=== PATIENT | female | born 1945 ===

== ENCOUNTER 2019-08-23 11:34 | Observation (INO) ==
[2019-08-23] MEDS ORDERED: Naloxone 0.4 MG/ML INJ IVP PRN (14:06)
[2019-08-23] MEDS ORDERED: Dextrose Gel 15 GM/37.5 ML TUBE PO PRN ×2 (14:51)
[2019-08-23] MEDS ORDERED: *HR* Dextrose 50 % in Water (Syg) 50 ML SYRINGE IVP PRN (14:51)
[2019-08-23] MEDS ORDERED: D5% in Water 1,000 ML IVC PRN (14:51)
[2019-08-23] MEDS ORDERED: Aspirin 81 MG TAB.CHEW PO SCH (15:00)
[2019-08-23] MEDS ORDERED: Acetaminophen 325 MG TABLET PO PRN (15:12)
[2019-08-23] MEDS ORDERED: Colchicine 0.6 MG TABLET PO PRN (15:12)
[2019-08-23] MEDS: Insulin LISPRO 300 UNITS/3 ML VIAL SQ SCH ×3 (16:46→21:59)
[2019-08-23] MEDS: *HR* Heparin 5,000 UNIT/ML VIAL SQ SCH (16:54)
[2019-08-23] MEDS: hydrALAZINE 25 MG TABLET PO SCH ×2 (16:55)
[2019-08-23] MEDS: cefTRIAXone 1,000 MG in Water for inj. (sterile) 10 ML IVP SCH (16:55)
[2019-08-23] MEDS: Ranolazine 500 MG TAB.ER.12H PO SCH (21:54)
[2019-08-23] MEDS: Mirtazapine 15 MG TABLET PO SCH (21:54)
[2019-08-23] MEDS: Metoprolol 100 MG TABLET PO SCH (21:54)
[2019-08-24] MEDS: hydrALAZINE 25 MG TABLET PO SCH ×4 (01:00→23:14)
[2019-08-24] MEDS: *HR* Heparin 5,000 UNIT/ML VIAL SQ SCH ×2 (06:27→17:24)
[2019-08-24] MEDS: Insulin LISPRO 300 UNITS/3 ML VIAL SQ SCH ×4 (08:41→20:30)
[2019-08-24] MEDS: Fenofibrate 54 MG TABLET PO SCH (09:06)
[2019-08-24] MEDS: Folic Acid 1 MG TABLET PO SCH (09:06)
[2019-08-24] MEDS: Metoprolol 100 MG TABLET PO SCH ×2 (09:07→20:04)
[2019-08-24] MEDS: allopurinoL 100 MG TABLET PO SCH (09:07)
[2019-08-24] MEDS: Ranolazine 500 MG TAB.ER.12H PO SCH ×2 (09:07→20:04)
[2019-08-24] MEDS: cefTRIAXone 1,000 MG in Water for inj. (sterile) 10 ML IVP SCH (09:07)
[2019-08-24] MEDS: Cyanocobalamin (B-12) 1,000 MCG TABLET PO SCH (09:07)
[2019-08-24] MEDS: Mirtazapine 15 MG TABLET PO SCH (20:04)
[2019-08-25 05:13] LABS: Basophils % 0.9 %; Eosinophils # 0.3 K/mcL (0.0-0.6); Eosinophils % 9.2 %; Hematocrit 29.7 % (35.3-44.9); Hemoglobin 9.7 g/dL (11.5-15.4); Immature Granulocytes % 0.3 % (0-4); Lymphocytes # 1.2 K/mcL (0.6-4.6); Lymphocytes % 35.3 %; Mean Corpuscular HGB Conc 32.7 g/dL (31.6-35.5); Mean Corpuscular Hemoglobin 33.1 pg (28.0-33.3); Mean Corpuscular Volume 101.4 fL (83.0-100.0); Mean Platelet Volume 10.2 fL (9.4-12.4); Monocytes # 0.4 K/mcL (0.0-1.3); Monocytes % 10.4 %; Neutrophils # 1.5 K/mcL (1.6-8.9); Platelet Count 123 K/mcL (140-400); Red Blood Count 2.93 M/mcL (3.82-4.97); Red Cell Distribution Width 13.2 % (11.5-14.5); Segmented Neutrophils % 43.9 %; White Blood Count 3.4 K/mcL (4.3-11.1)
[2019-08-25 05:30] LABS: Calcium 8.7 mg/dL (8.6-10.3); Potassium 3.5 mEq/L (3.5-5.1)
[2019-08-25] MEDS: *HR* Heparin 5,000 UNIT/ML VIAL SQ SCH ×2 (05:36→17:11)
[2019-08-25] MEDS: Insulin LISPRO 300 UNITS/3 ML VIAL SQ SCH ×4 (07:42→21:37)
[2019-08-25] MEDS: cefTRIAXone 1,000 MG in Water for inj. (sterile) 10 ML IVP SCH (07:49)
[2019-08-25] MEDS: Cyanocobalamin (B-12) 1,000 MCG TABLET PO SCH (07:50)
[2019-08-25] MEDS: Ranolazine 500 MG TAB.ER.12H PO SCH ×2 (07:50→20:09)
[2019-08-25] MEDS: Metoprolol 100 MG TABLET PO SCH ×2 (07:50→20:09)
[2019-08-25] MEDS: Fenofibrate 54 MG TABLET PO SCH (07:50)
[2019-08-25] MEDS: hydrALAZINE 25 MG TABLET PO SCH ×3 (07:51→23:13)
[2019-08-25] MEDS: Folic Acid 1 MG TABLET PO SCH (07:51)
[2019-08-25] MEDS: allopurinoL 100 MG TABLET PO SCH (07:51)
[2019-08-25] MEDS: Mirtazapine 15 MG TABLET PO SCH (20:09)
[2019-08-26] MEDS: *HR* Heparin 5,000 UNIT/ML VIAL SQ SCH (05:31)
[2019-08-26] MEDS: Insulin LISPRO 300 UNITS/3 ML VIAL SQ SCH ×2 (07:12→11:22)
[2019-08-26] MEDS: Cyanocobalamin (B-12) 1,000 MCG TABLET PO SCH (07:50)
[2019-08-26] MEDS: allopurinoL 100 MG TABLET PO SCH (07:50)
[2019-08-26] MEDS: Fenofibrate 54 MG TABLET PO SCH (07:50)
[2019-08-26] MEDS: hydrALAZINE 25 MG TABLET PO SCH (07:50)
[2019-08-26] MEDS: Metoprolol 100 MG TABLET PO SCH (07:50)
[2019-08-26] MEDS: Folic Acid 1 MG TABLET PO SCH (07:50)
[2019-08-26] MEDS: Ranolazine 500 MG TAB.ER.12H PO SCH (07:50)
[2019-08-26 11:17] VITALS: BP 154/64
== END 2019-08-26 15:42 | disposition home or self-care (01) ==
LOC: 3BNU → SUATTDRO 14:06
PROVIDERS: ADMIT Internal Medicine; ATTEND Internal Medicine